=== PATIENT | male | born 1955 | race Caucasian/White ===

== ENCOUNTER → 2019-07-06 | Day surgery (SDC) | payer OTHER ==
[2019-06-25 08:24] LABS: HEMATOCRIT 46.1 % (42.0-52.0); HEMOGLOBIN 15.5 gm/dL (14.0-18.0); MCH 29.6 pg (26.0-34.0); MCHC 33.8 g/dL (28.0-37.0); MCV 87.7 fL (80.0-100.0); MPV 7.8 fl. (7.2-11.1); RBC 5.25 mil/uL (4.50-6.00); RDW-CV 13.4 % (10.5-14.5)
[2019-06-25 08:36] LABS: ALBUMIN 3.6 g/dL (3.4-5.0); CALCIUM 8.5 mg/dL (8.5-10.1); TOTAL BILIRUBIN 0.7 mg/dL (<0.1-1.0); TOTAL PROTEIN 7.2 g/dL (6.4-8.2)
[~2019-07-06] MED LIST: ALLEGRA ALLERG180 MG PO; ALLEGRA180 MG PO; ASPIR 8181 MG PO; ATORVASTATIN CA80 MG PO; CEFDINIR300 MG; CHERATUSSIN DA480 ML; COLACE100 MG PO; COUMADIN 5 MG TA5 M1 PO; ENOXAPARIN80 MG/0.8 SQ; FLEXERIL PO; LISINOPRIL; LISINOPRIL40 MG PO; LOPRESSOR50 PO; MULTIVITAMINS PO; NORCO 5-325 TA1 EACH PO; OXYCODONE HCL5 MG PO; PLAVIX 75 MG TA75 M1 PO; PRINIVIL10 MG PO; VENTOLIN HFA 1818 GM INH
--- NOTE | 2019-07-08 11:07 | PATH ---
[facility] [address] [place] [address] PATHOLOGY RPT PROCEDURE Name: SUHA PERALTA Room: [facility].#: [id number] Admission: 07/06/19 Date of : 59 Discharge: Report #: [id number] Path Case #: [id number] [facility] Accession Number: [id number] . 01 Material submitted: . inguinal area - CORD LIPOMA . 01 Clinical history: . Umbilical hernia without obstruction and without gangrene/right inguinal hernia . 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 (LAUREN:rosendo; 07/08/2019) S 07/08/2019 0909 Local . 02 Electronically signed: . Misael Laguna MD, Pathologist NPI- [id number] . 01 Gross description: . The specimen is received in formalin, labeled "Peralta, Suha, cord lipoma", is an irregular fragment of yellow lobulated adipose tissue covered by a thin menendez-white membrane measuring 11.0 x 5.0 x 1.0 cm. Few dark brown hemorrhagic vessels are present. The specimen is serially sectioned to show a reynolds-yellow homogeneous cut surface with no discrete hemorrhage or necrosis. Representatively submitted in A1. ([facility]; 07/06/2019). [facility] 07/06/20192024 [facility] . 02 Pathologist provided ICD-10: D17.6 . 02 CPT . 356496 Specimen Comment: A courtesy copy of this report has been sent to Specimen Comment: [phone], . Specimen Comment: Report sent to / DR GILMAN Performed at: [address], [place] [id number] MD Andriy Valdes MD Phone: [phone] Performed at: 02 [facility] [address], [place], [place] [id number] MD Misael Laguna MD Phone: [phone]
--- NOTE | 2019-08-04 13:34 | OP ---
[address] [address] OPERATIVE REPORT Name: SUHA SANDRA Room: [facility]#: [id number] Admission: 07/06/19 Attend Phys: Danny Thomas DO Discharge: Date of : 59 Report #: [id number] THIS REPORT FOR: //name// CC: Danny Meier DO DATE OF SERVICE: 07/06/2019 REFERRING PHYSICIAN: Kiel Meier DO PREOPERATIVE DIAGNOSES: Right inguinal hernia and umbilical hernia. POSTOPERATIVE DIAGNOSES: Bilateral inguinal hernia and umbilical hernia and foreign body of the right inguinal canal. PROCEDURE: Da Michele robotic-assisted bilateral inguinal hernia repair with mesh and open umbilical hernia repair and retrieval of foreign body of the right groin. SURGEON: Danny Thomas DO CURING ROOM WORKER: Esme Castillo DO, PGY5, resident. ANESTHESIA: General endotracheal and TAP blocks. ESTIMATED BLOOD LOSS: Less than 20 mL. COMPLICATIONS: None. DESCRIPTION OF PROCEDURE: After obtaining proper consents and discussing risks and complications with the patient, he was taken to the operating room, laid in the supine position, administered general anesthesia. He was then prepped and draped in the usual sterile fashion. A timeout was performed. We confirmed the appropriate patient and procedure. Preoperative antibiotics were given. SCDs were in place. We then made a supraumbilical skin incision using a #11 scalpel blade. This was carried down through the skin into the subcutaneous tissue using electrocautery for hemostasis. Once the hernia of the umbilicus was identified, it was completely encircled. It was then detached from the umbilical skin. We then opened the hernia sac and grasped and elevated the fascial edges with Venita clamps. We were then able to bluntly open the peritoneum using a hemostat. We then placed 2-0 Prolene sutures in a [id number] fashion to secure the da Michele camera port, which was then inserted through this hole. We then began insufflation of the abdomen. Once insufflation was complete, full visual inspection of the anterior abdominal organs was performed. This revealed both left [place] [address] OPERATIVE REPORT Name: SANDRASUHAYaritza QUACH Room: [facility]#: [id number] Admission: 07/06/19 Attend Phys: Danny Thomas, DO Discharge: Date of : 59 Report #: [id number] hernias, the right side was larger than the left and on the right side we were able to visualize what appeared to be a clip from the patient's previous laparoscopic cholecystectomy sitting right in the inguinal canal attached to the peritoneum. At this point, we placed 2 more trocars, one 12 mm trocar in the right upper quadrant and an 8.5 mm da Michele port in the left upper quadrant. We then docked the da Michele robot and placed the 8.5 mm port down through the 12 mm port. I was then able to place laparoscopic scissors and a bipolar fenestrated grasper through the da Michele arms. I then broke scrub and went on console. Once on console, we began by first removing the foreign body in the right groin region. This was elevated with a fenestrated grasper and then using electrocautery, I was able to remove it from the peritoneal attachments. I then had my librarian assistant come in with a grasper and remove this clip. We then turned our attention to both the right and left groins. We identified the ASIS on both sides. I opened the peritoneum from the median umbilical ligament laterally to the ASIS. I then bluntly dissected the preperitoneal space. We identified the indirect inguinal hernia sac, which was dissected free. The dissection was carried all the way down below the pubic ramus medially and then laterally all the way out to the ASIS to allow for placement of a large Bard 3DMax mesh. The peritoneum was quite thin and did tear slightly while I was dissecting. I then turned my attention to the left side where similarly we opened the peritoneum from the median umbilical ligament laterally to the ASIS. I again dissected the preperitoneal space all the way down below the pubic ramus medially and then dissected the indirect inguinal hernia sac free and then continued the dissection all the way out to the ASIS to allow for placement of a large Bard 3DMax mesh. I then inserted the mesh on the right side and sutured it in place to the Herb's ligament medially and then also medial and lateral to the inferior epigastric vessels using a 2-0 Vicryl suture. I then started to close. I then closed the peritoneal flap using a running 2-0 absorbable V-Loc and in doing so, there were multiple tears in the peritoneum. I brought in another Vicryl suture after I closed the peritoneal flap and as I was closing the peritoneal flap, the needle somehow dislodged from the suture material and we were unable to then find the needle immediately. I rescrubbed and went back to the patient's bedside. We undocked the da Michele robot in order to move the camera around, so we could try to visualize better and find the needle. After quite a few minutes of not being able to find this needle, we did call for a C-arm. The C-arm came in and using C-arm fluoroscopy, I was able to identify where the needle was and then we did find it. It was sitting down in the pelvis below a loop of bowel and the needle was removed. I then again turned my attention to closing the peritoneal flap after we redocked the da Michele robot and reinserted the instruments. I went back to the console. I was then able to close the peritoneal flap using another 0 Vicryl suture. I then turned my attention to the patient's left side where we placed the mesh and then sutured it in place to Herb's ligament and then also medial and lateral to the inferior epigastric vessels using a 2-0 Vicryl suture. The peritoneal flap was then closed using a 2-0 absorbable V-Loc suture. There was again a small hole in the peritoneum, which was closed using a 2-0 Vicryl suture[place] [address] OPERATIVE REPORT Name: SUHA SANDRA Room: [facility]#: [id number] Admission: 07/06/19 Attend Phys: Danny Thomas, DO Discharge: Date of : 59 Report #: [id number] all done, all needles were removed. There was also a cord lipoma, which we had removed from the right side, which was placed into an Endopouch and removed as well. We then undocked the robot. The trocars were removed. The 12 mm right upper quadrant trocar site was closed using a PMI closure device and a 0 Vicryl suture. The umbilical fascia and hernia defect were closed using interrupted 0 Prolene sutures in a [id number] fashion. The umbilicus was reattached using 2-0 Vicryl suture. The subcutaneous tissues were closed using 3-0 Vicryl suture and skin incisions were all closed using 4-0 Monocryl subcuticular stitches. Mastisol, Steri-Strips, sterile OpSite and pressure dressings were placed. The patient was awakened in the operating room and transported to recovery room in stable condition. <ELECTRONICALLY SIGNED> By: Danny Thomas DO 08/04/19 1334 1231 [id number] Thomas DO /nt
== END | disposition home or self-care (01) ==
LOC: M.SUR 06:31
PROVIDERS: Surgery
DX: K40.20 Bilateral inguinal hernia, without obstruction or gangrene, not specified as recurrent (principal); K42.9 Umbilical hernia without obstruction or gangrene; D17.6 Benign lipomatous neoplasm of spermatic cord; Z18.9 Retained foreign body fragments, unspecified material; Z98.890 Other specified postprocedural states; Z79.899 Other long term (current) drug therapy; Z88.8 Allergy status to other drugs, medicaments and biological substances; Z88.0 Allergy status to penicillin